=== PATIENT | female | born 1945 | race Caucasian/White ===

== ENCOUNTER 2019-08-09 04:34 | Inpatient (IN) | payer MEDICARE ==
[~2019-08-09] VITALS: Ht 157.5 cm; Wt 66.1 kg
[2019-08-09] VITALS (12 sets, daily range): BP systolic 96–136; BP diastolic 48–89
--- NOTE | 2019-08-09 06:46 | NUR ---
ADMISSION PATIENT TRANSFERRED FROM [facility]. RECEIVED PATIENT AWAKE, ALERT AND VERBALLY RESPONSIVE, NO C/O PAIN OR DISCOMFORT AT THIS TIME. PT ORIENTED TO ROOM, CALL HINES, BED IN LOWEST POSITION. Addendum: 08/09/19 at 0746 by ANTONIO PARDO RN Amended: Links added.
--- NOTE | 2019-08-09 07:13 | NUR ---
SVT/AFIB EKG DONE AT 0713 SVT HR 148, TIMBER GRADER CALLED MADE NURSE AWARE PT SVT HR IN 160'S-170'S. MD SPEARS PAGED PENDING CALL BACK.
--- NOTE | 2019-08-09 07:23 | NUR ---
TELEMETRY CALLED MADE NURSE AWARE PT HR 140-150'S ZAIDA, PAGED DR. REYES AWAITING CALL BACK.
--- NOTE | 2019-08-09 07:56 | NUR ---
CALL DR. SPEARS ON HIS CELLPHONE ABOUT THE PATIENT HAVING SVT 180S AND A FLUTTER HEART RATE. HE ORDERED METOPROLOL IV 5 MG TO BE GIVEN NOW AND TO START 5 MG METOPROLOL IV EVERY 6 HOURS SCHEDULE AND TO NOTIFY DR. REYES OF THE CONSULT AND FURTHER RECOMMENDATION.
[2019-08-09] MEDS ORDERED: METOPROLOL TARTRATE 1 MG/ML 5ML VIAL IV SCH ×2 (08:00→10:00)
[2019-08-09] MEDS ORDERED: BUDE10.2 IH (08:03)
[2019-08-09] MEDS ORDERED: ALPR0.255 PO (08:03)
[2019-08-09] MEDS ORDERED: DULO60CA64 PO (08:03)
[2019-08-09] MEDS ORDERED: RABE20TA27 PO (08:03)
[2019-08-09] MEDS ORDERED: GABA-531 PO (08:03)
[2019-08-09] MEDS ORDERED: ATOR40TA69 PO (08:03)
[2019-08-09] MEDS ORDERED: METO-409 PO (08:03)
[2019-08-09] MEDS ORDERED: AMIO200T6 PO (08:03)
[2019-08-09] MEDS ORDERED: MONT10TA26 PO (08:03)
[2019-08-09] MEDS ORDERED: RIVA20TA PO (08:03)
--- NOTE | 2019-08-09 08:44 | NUR ---
CALL DR. REYES ON HIS CELLPHONE TO NOTIFY HIM OF THE CONSULT. NO ANSWER.
[2019-08-09] MEDS ORDERED: METOPROLOL TARTRATE 50 MG TAB PO SCH (09:00)
[2019-08-09] MEDS: METOPROLOL TARTRATE 1 MG/ML 5ML VIAL IV SCH ×3 (09:18→19:50)
--- NOTE | 2019-08-09 09:36 | NUR ---
DR. REYES AT THE BEDSIDE AND ORDERED ANOTHER 5 MG OF METOPROLOL IV TO GIVE TO THE PATIENT. WILL CARRY OUT THE ORDER.
--- NOTE | 2019-08-09 10:22 | NUR ---
INITIAL SW spoke with spouse, Satinder Fitzpatrick, . Patient was transferred from [facility]. Patient is Dione Christie from [place] who lives with spouse. No home services. DME: [facility]. Patient was able to complete ADL's independently and drove prior to being in the hospital. PCP is Dr. Randall Cleary. Pharmacy is [facility] located in [place]. DCP is home. Local Address: [facility] [address] [place], [place] Addendum: 08/09/19 at 1027 by AI COMER Amended: Links added.
[2019-08-09] MEDS ORDERED: AMIODARONE HCL 200 MG TABLET PO SCH (10:30)
[2019-08-09] MEDS ORDERED: BUPIVACAINE/PF 0.25% 30ML VIAL IJ ONE (11:35)
[2019-08-09] MEDS ORDERED: MEPERIDINE-PF 25 MG/ML SYG ONE ×3 (11:36→13:42)
[2019-08-09] MEDS ORDERED: IOHEXOL-350 50ML VIAL IV ONE (11:36)
[2019-08-09] MEDS ORDERED: LIDOCAINE HCL 1% MDV 50ML VIAL ONE (11:36)
[2019-08-09] MEDS ORDERED: MIDAZOLAM HCL 1 MG/ML 2ML VIAL ONE ×3 (11:36→13:42)
[2019-08-09] MEDS ORDERED: VANCOMYCIN 1GM+NS 250ML 500 ML IV ONE (11:37)
[2019-08-09 11:54] LABS: BASOPHILS % (AUTO) 0.4 % (0.0-5.0); EOSINOPHILS % (AUTO) 0.3 % (0.0-8.0); HEMATOCRIT 43.3 % (36-48); LYMPHOCYTES % (AUTO) 10.8 % (21.0-51.0); MEAN CORPUSCULAR HEMOGLOBIN 32.9 pg (27.0-33.0); MEAN CORPUSCULAR HGB CONC 35.1 g/dL (32.0-36.0); MEAN CORPUSCULAR VOLUME 93.7 fL (79-99); MONOCYTES % (AUTO) 8.1 % (3.0-13.0); NEUTROPHILS % (AUTO) 80.1 % (40.0-77.0); PLATELET COUNT (AUTO) 341 K/uL (130-400); RED BLOOD CELL COUNT(AUTO) 4.62 MIL/uL (4.00-5.50); RED CELL DISTRIBUTION WIDTH 11.3 % (11.0-15.5); WHITE BLOOD COUNT (AUTO) 10.5 K/uL (4.8-10.8)
[2019-08-09 12:05] LABS: CREATININE 0.8 mg/dL (0.5-1.5)
[2019-08-09 12:07] LABS: INR 0.96 (0.85-1.15); PROTHROMBIN TIME 10.4 SEC (9.6-11.6)
--- NOTE | 2019-08-09 20:02 | NUR ---
CALL DR. REYES CELLPHONE TO NOTIFY HIM OF THE CONSULT AND THAT THE PATIENT IS HAVING SVT 160S TO 180S HEART RATE. HE ORDERED ANOTHER DOSE OF 5MG METOPROLOL IV AND METOPROLOL TARTRATE 75 MG ONE TIME DOSE AND VERBALIZED THAT HE WILL SEE THE PATIENT.
[2019-08-09] MEDS: ACETAMINOPHEN 325 MG TAB PO PRN (20:11)
[2019-08-09] MEDS: METOPROLOL TARTRATE 50 MG TAB PO SCH (20:11)
[2019-08-09] MEDS: AMIODARONE HCL 200 MG TABLET PO SCH (20:11)
[2019-08-10 03:00] VITALS: BP 134/86
[2019-08-10] MEDS: ACETAMINOPHEN 325 MG TAB PO PRN ×2 (03:05→11:19)
[2019-08-10 07:20] VITALS: BP 145/83
[2019-08-10] MEDS: AMIODARONE HCL 200 MG TABLET PO SCH (08:13)
[2019-08-10] MEDS: METOPROLOL TARTRATE 50 MG TAB PO SCH (08:13)
[2019-08-10] MEDS ORDERED: AMIODARONE HCL 200 MG TABLET PO SCH (09:00)
--- NOTE | 2019-08-10 10:52 | NUR ---
Gibson LUNA PA-C, IN ROOM SPEAKING WITH PT. RE:DISCHARGE DISPOSITION. QUESTIONS ANSWERED BY Deb
[2019-08-10] MEDS ORDERED: AMIO200T6 PO (11:15)
[2019-08-10] MEDS ORDERED: METO-409 PO (11:15)
[2019-08-10 11:25] VITALS: BP 138/63
[2019-08-10 15:17] VITALS: BP 142/97
--- NOTE | 2019-08-10 15:39 | NUR ---
PRESCRIPTIONS CALLED IN TO [facility], PT.'S PHARMACY; SPOKE WITH STEPHANIE, PHARMACIST.
--- NOTE | 2019-08-10 16:10 | NUR ---
HL REMOVED, CATHETER INTACT. DISCHARGE INSTRUCTIONS GIVEN, INCLUDING DRESSING CHANGE INSTRUCTIONS, PT. VERBALIZED UNDERSTANDING.
--- NOTE | 2019-08-10 16:35 | NUR ---
DISCHARGED HOME VIA W/C WITH BELONGINGS ACCOMPANIED BY CORNELL HALLMAN.
== END 2019-08-10 16:29 | disposition home or self-care (01) | DRG 243 ==
LOC: 4CH 06:40 → 2AH 18:43
PROVIDERS: ADMIT Internal Medicine; ATTEND Internal Medicine
PROC: 0JH606Z Insertion of Pacemaker, Dual Chamber into Chest Subcutaneous Tissue and Fascia, Open Approach (ICD-10-PCS; principal; 2019-08-09)
PROC: 02HK3JZ Insertion of Pacemaker Lead into Right Ventricle, Percutaneous Approach (ICD-10-PCS; 2019-08-09)
PROC: 02H63JZ Insertion of Pacemaker Lead into Right Atrium, Percutaneous Approach (ICD-10-PCS; 2019-08-09)
DX: I49.5 Sick sinus syndrome (principal); I48.92 Unspecified atrial flutter; R55 Syncope and collapse; I48.0 Paroxysmal atrial fibrillation; I10 Essential (primary) hypertension; E78.5 Hyperlipidemia, unspecified; F41.9 Anxiety disorder, unspecified; K21.9 Gastro-esophageal reflux disease without esophagitis; J44.9 Chronic obstructive pulmonary disease, unspecified; Z79.01 Long term (current) use of anticoagulants; Z87.891 Personal history of nicotine dependence; Z95.0 Presence of cardiac pacemaker; Z88.5 Allergy status to narcotic agent; Z88.2 Allergy status to sulfonamides; Z88.8 Allergy status to other drugs, medicaments and biological substances; Z82.49 Family history of ischemic heart disease and other diseases of the circulatory system
CPT/HCPCS: 33208; 36415; 71045; 80048; 85025; 85610; 93005; 99156; 99157; C1785; G0378; J2175; J2250; J3370; J3490; Q9967

== ENCOUNTER → 2022-04-25 | Outpatient (CLI) | payer MEDICARE ==
[~2022-04-25] MED LIST: ALPR0.255 PO; AMIO200T68 PO; ATOR40TA69 PO; BUDE10.2 IH; DULO60CA64 PO; GABA-531 PO; METO-409 PO; MONT-39 PO; RABE20TA30 PO; RIVA20TA PO
[2022-04-25 13:06] LABS: HEMATOCRIT 38.7 % (36-48); MEAN CORPUSCULAR HEMOGLOBIN 32.2 pg (27.0-33.0); MEAN CORPUSCULAR HGB CONC 34.1 g/dL (32.0-36.0); MEAN CORPUSCULAR VOLUME 94.4 fL (79-99); PLATELET COUNT (AUTO) 237 K/uL (130-400); RED CELL DISTRIBUTION WIDTH 11.8 % (11.0-15.5); WHITE BLOOD COUNT (AUTO) 5.4 K/uL (4.8-10.8)
[2022-04-25 13:28] LABS: INR 0.93 (0.85-1.15); PROTHROMBIN TIME 9.8 SEC (9.6-11.6)
[2022-04-25 13:29] LABS: PARTIAL THROMBOPLASTIN TIME 26.4 SEC (26.3-35.5)
[2022-04-25 13:51] LABS: ALBUMIN 3.9 g/dL (3.5-5.0); CREATININE 0.7 mg/dL (0.5-1.5); POTASSIUM 3.7 mmol/L (3.5-5.1); TOTAL PROTEIN, SERUM 7.6 g/dL (6.0-8.3)
[2022-04-25 14:22] LABS: EOSINOPHILS % (MANUAL) 5 % (1-6); LYMPHOCYTES % (MANUAL) 18 % (22-44); MAN.DIFF COMMENT-IMPRESSION MANUAL DIFFERENTIAL; MONOCYTES % (MANUAL) 1 % (2-9); PLATELET MORPHOLOGY COMMENT ADEQUATE; SEGMENTED NEUTROPHILS % 76 % (40-70)
== END | disposition home or self-care (01) ==
LOC: LAB 11:58
PROVIDERS: ATTEND Internal Medicine Gastroenterology
DX: C18.4 Malignant neoplasm of transverse colon (principal); I48.91 Unspecified atrial fibrillation; I25.10 Atherosclerotic heart disease of native coronary artery without angina pectoris; I10 Essential (primary) hypertension
CPT/HCPCS: 36415; 80053; 82378; 85025; 85610; 85730

== ENCOUNTER → 2022-04-27 | Outpatient (CLI) | payer MEDICARE ==
[~2022-04-27] MED LIST changes: +IOHEXOL 350 MG/ML 100ML INFUS..BTL IV ONE
== END | disposition home or self-care (01) ==
LOC: RAH 08:02
PROVIDERS: ATTEND Internal Medicine Gastroenterology
DX: C18.4 Malignant neoplasm of transverse colon (principal); K76.0 Fatty (change of) liver, not elsewhere classified; K57.30 Diverticulosis of large intestine without perforation or abscess without bleeding; Z90.49 Acquired absence of other specified parts of digestive tract
CPT/HCPCS: 71270; 74178; Q9967